=== PATIENT | male | born 1960 | race Caucasian/White ===

== ENCOUNTER 2017-09-16 05:36 | Day surgery (SDC) | payer OTHER ==
[~2017-09-16] VITALS: Ht 190.5 cm; Wt 108.9 kg
[~2017-09-16 05:36] MED LIST: GLUCOTROL10 MG PO; JARDIANCE10 MG PO; KENALOG,ARISTOC15 G3 TP; LO-DOSE ASPIRIN81 M1 PO; METFORMIN HCL500 M4 PO
[2017-09-16 06:28] VITALS: BP 122/80
[2017-09-16 07:07] LABS: POINT-OF-CARE METER ID UU14174212
[2017-09-16 09:10] LABS: POINT-OF-CARE METER ID UU13113675
[2017-09-16 09:56] VITALS: BP 152/80
[2017-09-16 10:37] VITALS: BP 127/73
== END 2017-09-16 10:53 | disposition home or self-care (01) ==
LOC: SDC 05:36
PROVIDERS: Ophthalmology
DX: H35.372 Puckering of macula, left eye (principal); E11.311 Type 2 diabetes mellitus with unspecified diabetic retinopathy with macular edema; E78.5 Hyperlipidemia, unspecified; G47.33 Obstructive sleep apnea (adult) (pediatric); Z79.84 Long term (current) use of oral hypoglycemic drugs; Z87.891 Personal history of nicotine dependence; Z79.82 Long term (current) use of aspirin
CPT/HCPCS: 82948; J0330; J0690; J0713; J2250; J2405; J3010; J3300